=== PATIENT | male | born 2000 | race Caucasian/White ===

== ENCOUNTER 2023-12-04 05:53 | Emergency (ER) | payer OTHER, SELFPAY ==
[~2023-12-04] VITALS: Ht 185.4 cm; Wt 125.3 kg
[2023-12-04 06:33] LABS: BASO % 0.3 % (0.0-1.0); EOS # 0.1 10^3/uL (0.0-0.5); EOS % 1.1 % (0.0-3.0); HEMATOCRIT 41.2 % (42.0-52.0); HEMOGLOBIN 14.1 g/dl (13.5-17.5); LYMPH # 2.2 10^3/uL (1.5-5.0); LYMPH % 29.1 % (24.0-44.0); MEAN CORPUSCULAR HEMOGLOBIN 31.1 pg (27.0-33.0); MEAN CORPUSCULAR HGB CONC 34.2 g/dl (32.0-36.5); MEAN CORPUSCULAR VOLUME 90.7 fl (80.0-96.0); MONO # 0.7 10^3/uL (0.0-0.8); MONO % 9.9 % (2.0-8.0); NEUTROPHILS # 4.4 10^3/uL (1.5-8.5); NEUTROPHILS % 59.3 % (36.0-66.0); PLATELET COUNT, AUTOMATED 267 10^3/uL (150-450); RED BLOOD COUNT 4.54 10^6/uL (4.30-6.10); WHITE BLOOD COUNT 7.4 10^3/uL (4.0-10.0)
[2023-12-04 07:02] LABS: ALBUMIN 3.8 G/DL (3.2-5.2); BILIRUBIN,DIRECT 0.2 MG/DL (<0.4); BILIRUBIN,TOTAL 0.5 MG/DL (0.3-1.2); CALCIUM LEVEL 9.2 MG/DL (8.5-10.1); POTASSIUM SERUM 4.3 MMOL/L (3.5-5.1); TOTAL PROTEIN 6.8 G/DL (5.7-8.2)
[2023-12-04] MEDS ORDERED: HOME MED LIST COMPLETE! XX SCH (08:30)
[2023-12-04] MEDS: methylPREDNISolone 125MG 2ML VIAL IV ONE (08:42)
[2023-12-04] MEDS ORDERED: IBUP80TA PO (09:43)
[2023-12-04] MEDS ORDERED: LIDO5DIS41 TD (09:43)
[2023-12-04] MEDS: KETOROLAC 30 MG/ML 1ML VIAL IV ONE (10:03)
[2023-12-04 10:16] VITALS: BP 115/73; TEMP 97; O2SAT 98
[2023-12-04 12:53] LABS: CREATININE FOR GFR 1.58 MG/DL (0.70-1.30); GLOMERULAR FILTRATION RATE 58.7 (>60)
== END 2023-12-04 10:45 | disposition home or self-care (01) ==
LOC: M ED 05:53
DX: K40.90 Unilateral inguinal hernia, without obstruction or gangrene, not specified as recurrent (principal); M54.9 Dorsalgia, unspecified; G89.29 Other chronic pain
CPT/HCPCS: 74176; 76857; 76870; 80048; 80076; 81001; 83690; 85025; 93041; 93976; 96374; 96375; 99284; J1885; J2919

== ENCOUNTER 2024-01-04 07:16 | Day surgery (SDC) | payer OTHER ==
[~2024-01-04] VITALS: Ht 185.4 cm; Wt 122.9 kg
[~2024-01-04 07:16] MED LIST: IBUP80TA PO; LIDO5DIS41 TD
[2024-01-04] MEDS ORDERED: MIDAZOLAM INJ 2MG/2ML VIAL As Ordered ONE (08:25)
[2024-01-04] MEDS ORDERED: fentaNYL 100 MCG/2 ML INJECTION As Ordered ONE (08:26)
[2024-01-04] MEDS: LR 1,000 ML IV SCH (08:30)
[2024-01-04] MEDS: OXYMETAZOLINE 0.05% NASAL SPRAY (AFRIN) As Ordered ONE (09:01)
[2024-01-04] MEDS ORDERED: propofoL 200 MG/20 ML VIAL As Ordered ONE (09:05)
[2024-01-04] MEDS ORDERED: ROCURONIUM BROMIDE 50MG/5ML VIAL As Ordered ONE (09:05)
[2024-01-04] MEDS ORDERED: LIDOCAINE 2% 100MG/5ML SDV (FOR ANES.) As Ordered ONE (09:05)
[2024-01-04] MEDS ORDERED: ONDANSETRON 4MG 2ML VIAL As Ordered ONE (09:24)
[2024-01-04] MEDS ORDERED: ESMOLOL INJ 100MG/10ML VIAL As Ordered ONE (09:33)
[2024-01-04] MEDS ORDERED: SUGAMMADEX SODIUM 500 MG/5 ML VIAL (BRIDION) As Ordered ONE (09:33)
[2024-01-04] MEDS ORDERED: HYDROmorphone HCL 2MG/ML 1ML VIAL As Ordered ONE (09:41)
[2024-01-04] MEDS ORDERED: fentaNYL 100 MCG/2 ML INJECTION IV PRN (10:00)
[2024-01-04] MEDS ORDERED: MEPERIDINE 25 MG/ML 1ML VIAL As Ordered ONE (10:10)
[2024-01-04] MEDS: MEPERIDINE 25 MG/ML 1ML VIAL IV PRN (10:11)
[2024-01-04] MEDS: ONDANSETRON 4MG 2ML VIAL IV PRN (10:22)
[2024-01-04] MEDS: PERCOCET 5MG/325MG TAB PO PRN (10:22)
[2024-01-04] MEDS: HYDROMORPHONE HCL 0.5 MG/ 0.5 ML SYRINGE IV PRN (10:24)
[2024-01-04 11:07] VITALS: BP 138/68; TEMP 98.1; O2SAT 98
== END 2024-01-04 11:30 | disposition home or self-care (01) ==
LOC: M SDC 07:16
PROVIDERS: ATTEND Otolaryngology
DX: J35.01 Chronic tonsillitis (principal); R06.83 Snoring; F17.290 Nicotine dependence, other tobacco product, uncomplicated
CPT/HCPCS: 42826; 88302; J0665; J1100; J1170; J1805; J2175; J2250; J2405; J3010

== ENCOUNTER 2024-02-03 12:18 | Emergency (ER) | payer OTHER ==
[~2024-02-03] VITALS: Ht 185.4 cm; Wt 120.0 kg
[2024-02-03] MEDS ORDERED: BENZ200C70 PO (17:11)
[2024-02-03 17:23] VITALS: BP 120/77; TEMP 97.9; O2SAT 100
== END 2024-02-03 17:40 | disposition home or self-care (01) ==
LOC: M ED 12:18
DX: U07.1 COVID-19 (principal)

== ENCOUNTER → 2024-03-29 | Day surgery (SDC) | payer OTHER ==
[~2024-03-29] VITALS: Ht 185.4 cm; Wt 119.2 kg
[~2024-03-29] MED LIST changes: +ACETAMINOPHEN 1000MG 100ML IV BAG As Ordered ONE; +BENZ200C70 PO; +KETOROLAC 60MG 2ML VIAL As Ordered ONE; +LIDOCAINE 2% 100MG/5ML SDV (FOR ANES.) As Ordered ONE; +METOCLOPRAMIDE INJ 10MG/2ML VIAL As Ordered ONE; +MIDAZOLAM INJ 2MG/2ML VIAL As Ordered ONE; +ONDANSETRON 4MG 2ML VIAL As Ordered ONE; +PHENYLephrine 500MCG 5ML (100MCG/ML) SYRINGE As Ordered ONE; +ROCURONIUM BROMIDE 50MG/5ML VIAL As Ordered ONE; +SUGAMMADEX SODIUM 500 MG/5 ML VIAL (BRIDION) As Ordered ONE; +dexmedeTOMIDine (4MCG/ML)200MCG/50ML BTL (PRECEDEX) As Ordered ONE; +fentaNYL 100 MCG/2 ML INJECTION As Ordered ONE; +fentaNYL 100 MCG/2 ML INJECTION IV PRN; +propofoL 200 MG/20 ML VIAL As Ordered ONE
[2024-03-29] MEDS: ceFAZolin SOD 2 GM in IV 1 EA IV ONE (16:20)
[2024-03-29] MEDS: HEPARIN SOD (PORCINE) 5000UNITS/ML 1ML VIAL/SYRINGE SQ ONE (16:37)
[2024-03-29] MEDS: ONDANSETRON 4MG 2ML VIAL IV PRN (18:13)
[2024-03-29] MEDS: oxyCODONE 5MG TAB PO PRN (18:14)
[2024-03-29] MEDS: MORPHINE 2 MG/ML 1ML VIAL IV PRN (18:14)
[2024-03-29 19:05] VITALS: BP 136/83; TEMP 96.8; O2SAT 99
== END | disposition home or self-care (01) ==
LOC: M SDC 13:29
PROVIDERS: ATTEND Surgery
DX: K40.30 Unilateral inguinal hernia, with obstruction, without gangrene, not specified as recurrent (principal); D17.6 Benign lipomatous neoplasm of spermatic cord; F17.200 Nicotine dependence, unspecified, uncomplicated
CPT/HCPCS: 49650; C1781; J0131; J0665; J0690; J1100; J1885; J2250; J2371; J2405; J2765; J3010; S2900